=== PATIENT | male | born 1990 | race Caucasian/White ===

== ENCOUNTER 2016-12-01 12:10 | Emergency (ER) | payer SELFPAY ==
--- NOTE | 2016-12-01 13:50 | ER Document Report ---
HPI - HPI Patient complains to provider of: Flulike symptoms Onset: Other Onset/Duration: Gradual Quality of pain: Achy Severity: Moderate Pain Level: 4 Context: Patient states he ran a fever Wednesday and Wednesday of 102, no fever today. Complains of sore throat, body aches, nausea with vomiting 2. Associated Symptoms: Fever, Headache, Nausea, Vomiting, Rhinnorhea, Sore throat Exacerbated by: Denies Relieved by: Denies Similar symptoms previously: No Recently seen / treated by doctor: No - ROS ROS below otherwise negative: Yes Systems Reviewed and Negative: Yes All other systems reviewed and negative - CONSTITUTIONAL Constitutional: DENIES: Fever - EENT EENT: REPORTS: Sore Throat, Nasal Drainage-Clear - NEURO Neurology: REPORTS: Headache - CARDIOVASCULAR Cardiovascular: DENIES: Chest pain - RESPIRATORY Respiratory: DENIES: Trouble Breathing, Coughing - GASTROINTESTINAL Gastrointestinal: REPORTS: Nausea, Patient vomiting. DENIES: Abdominal Pain - URINARY Urinary: DENIES: Dysuria - MUSCULOSKELETAL Musculoskeletal: DENIES: Extremity pain - DERM Skin Color: Normal Skin Problems: None Past Medical History - General Information source: Patient - Social History Smoking Status: Never Smoker Chew tobacco use (# tins/day): No Frequency of alcohol use: None Drug Abuse: None Lives with: Spouse/Significant other Family History: Reviewed & Not Pertinent - Medical History Medical History: Negative Past Surgical History: Reports: Hx Orthopedic Surgery - l wrist - Immunizations Hx Diphtheria, Pertussis, Tetanus Vaccination: No Vertical Provider Document - CONSTITUTIONAL Agree With Documented VS: Yes Exam Limitations: No Limitations General Appearance: WD/WN, No Apparent Distress - INFECTION CONTROL TRAVEL OUTSIDE OF THE [place] IN LAST 30 DAYS: No - HEENT HEENT: Atraumatic, Normocephalic, PERRLA, Pharyngeal Exudate, Pharyngeal Erythema. negative: Conjuctival Injection, Tympanic Membrane Bulging - NECK Neck: Supple, Lymphadenopathy-Left, Lymphadenopathy-Right - RESPIRATORY Respiratory: Breath Sounds Normal, No Respiratory Distress - CARDIOVASCULAR Cardiovascular: Regular Rate, Regular Rhythm - GI/ABDOMEN Gastrointestinal: Abdomen Soft, Abdomen Non-Tender, Normal Bowel Sounds - MUSCULOSKELETAL/EXTREMETIES Musculoskeletal/Extremeties: RONALD MICHAUD - NEURO Level of Consciousness: Awake, Alert, Appropriate - DERM Integumentary: Warm, Dry, No Rash Discharge - Discharge Clinical Impression: Exudative pharyngitis Condition: Good Disposition: HOME, SELF-CARE Instructions: Acetaminophen Additional Instructions: Finish all antibiotics as prescribed Tylenol or Motrin as needed for fever and/or sore throat Push fluids Replace your toothbrush in 2 days Follow-up with your doctor for recheck if not better in 3-4 days return as needed Prescriptions: Penicillin V Potassium [Penicillin Vk 500 mg Tablet] 500 mg PO QID #40 tablet Forms: Return to Work
== END 2016-12-01 15:04 | disposition home or self-care (01) ==
LOC: ER 12:10
DX: J02.9 Acute pharyngitis, unspecified (principal); R50.9 Fever, unspecified; M79.1 Myalgia; R11.2 Nausea with vomiting, unspecified
CPT/HCPCS: 87070; 87804; 87880; 99283